=== PATIENT | female | born 1970 | race Caucasian/White ===

== ENCOUNTER 2021-12-18 20:05 | Emergency (ER) | payer OTHER ==
[~2021-12-18] VITALS: Ht 172.7 cm; Wt 113.4 kg
[2021-12-18] MEDS ORDERED: CEPHALEXIN500 M1 PO (21:58)
[2021-12-18] MEDS ORDERED: NORCO 325 MG-51 TA1 PO (21:59)
[2021-12-18 23:15] VITALS: BP 148/80
== END 2021-12-18 23:15 | disposition home or self-care (01) ==
LOC: ED 20:05
DX: S62.617B Displaced fracture of proximal phalanx of left little finger, initial encounter for open fracture (principal); Z88.0 Allergy status to penicillin; Z28.310 Unvaccinated for COVID-19; Z23 Encounter for immunization; W01.0XXA Fall on same level from slipping, tripping and stumbling without subsequent striking against object, initial encounter
CPT/HCPCS: 90714; J0690